=== PATIENT | male | born 1990 | race Two or more races ===

== ENCOUNTER 2023-08-07 21:02 | Emergency (ER) | payer OTHER ==
[~2023-08-07] VITALS: Ht 180.3 cm; Wt 80.0 kg
[2023-08-07 22:23] VITALS: BP 144/93; PULSE 121; RESP 15; TEMP 100.2
[2023-08-07] MEDS ORDERED: LORazepam 2 MG TABLET PO ONE (23:15)
[2023-08-07] MEDS ORDERED: OLANZapine 5 MG TABLET PO ONE (23:15)
== END 2023-08-08 01:23 | disposition home or self-care (01) ==
LOC: EMS 21:04
DX: F41.9 Anxiety disorder, unspecified (principal); F15.90 Other stimulant use, unspecified, uncomplicated
CPT/HCPCS: 99283